=== PATIENT | male | born 1955 ===

== ENCOUNTER 2023-06-26 09:45 | Outpatient (REF) | payer SELFPAY | END 2023-06-26 09:46 | disposition home or self-care (01) | LOC: HO.HOSX 09:45 | PROVIDERS: Visit Provider Physician Assistant | DX: Z13.89 Encounter for screening for other disorder (principal) ==

== ENCOUNTER 2023-06-29 09:50 | Outpatient (REF) | payer SELFPAY | END 2023-06-29 09:51 | disposition home or self-care (01) | LOC: HO.HOSX 09:50 | PROVIDERS: Visit Provider Physician Assistant | DX: Z13.89 Encounter for screening for other disorder (principal) ==